=== PATIENT | female | born 1995 | race Caucasian/White ===

== ENCOUNTER 2022-06-13 08:31 | Inpatient (IN) ==
[2022-06-13] MEDS ORDERED: OXYTOCIN 30 UNITS/500 ML BAG IV PRN ×2 (10:29→21:56)
[2022-06-13] MEDS ORDERED: LACTATED RINGER'S 1,000 ML IV PRN (10:29)
[2022-06-13] MEDS ORDERED: LIDOCAINE 1% LOCAL 20 ML VIAL INFIL PRN (10:29)
--- NOTE | 2022-06-13 10:34 | History & Physical Report ---
Date of Service June 13, 2022 Assessment & Plan (1) Post-term , 40-42 weeks of gestation: Plan: Anticipate normal delivery History of Present Illness Chief Complaint: onset of labor Primary Care Provider: Celsa Brito MD 27 F P0000 at 41.5 weeks admitted in active labor. GBS is negative. Covid is negative. Allergies Allergy/AdvReac Type Severity Reaction Status Date / Time No Known Allergies Allergy Unverified 06/02/22 13:28 Home Medications Medication Instructions Recorded Confirmed Type ferrous sulfate 1 tab PO DAILY 06/02/22 06/13/22 History vits,calcium 91-iron 28 1 pkg PO 06/02/22 History mg-folic 975 mcg-dha 200 mg oral pack ( + DHA) Patient History Medical History Asthma Dysthymia Surgical History No history of previous surgery Family History Grandmother Heart disorder Breast cancer Dementia Mother Hypertension Father ADD (attention deficit disorder) Sister ADD (attention deficit disorder) Social History Smoking Status: Never smoker Second Hand Exposure: No; Hx Alcohol Use: No Hx Substance Use: No Preferred Language: Polish Communication Ability: Effective Communications Equipment Operator Required: No Beliefs That Will Affect Care: None marital status: Current Living Situation: Spouse Current Living Situation Comment: Lives at home with Feels Safe at Home: Yes Safety Concerns: Feels Safe At This Time Assistive Devices: Contacts and Glasses OB History [employer] History neg Review of Systems All systems reviewed & are unremarkable except as noted in HPI & below Physical Exam Constitutional: WD/WN, vitals as above Eyes: PERRL, conjunctivae normal, anicteric sclerae Respiratory: normal respiratory effort, lungs clear to auscultation Cardiovascular: RRR, no murmur, no edema Gastrointestinal (Abdomen): Inspection/Auscultation: abdomen normal to inspection Musculoskeletal: Extremities: extremities normal to inspection Skin: no rashes, warm and dry Neurologic: patellar DTR's 2+ bilat, sensation intact Psychiatric: A+Ox3, euthymic affect Genitourinary: no vaginal lesions, no adnexal mass OB Exam Abdomen: + fundal height and + vertex Manual OB Exam: + cervical dilation 8 cm and 9 cm, + cervical effacement 100% and + station 0 OB Exam Monitor Tracing: + external FHT monitor used, + external uterine monitor used, + category I and + normal FHT variability Results & Data ([facility]) Vital Signs (Past 12 Hours) Vital Signs Temp Pulse Resp BP 06/13/22 08:44 72 112/66 06/13/22 08:55 36.7 C 72 18 112/66 Laboratory Results 06/13/22 Unknown SARS-CoV-2, RNA, NAAT NEGATIVE Code Status & VTE Plan VTE Prophylaxis Plan VTE Prophylaxis will be ordered: No Monitoring External Monitor Cat 1
[2022-06-13 10:47] LABS: Hematocrit (blood only) 35.5 % (34.1-44.9); Hemoglobin 12.4 g/dl (12.0-16.0); Mean Corpuscular Hemoglobin 30.3 pg (25.0-34.0); Mean Corpuscular Hgb Conc 34.9 g/dL (32.0-36.0); Mean Corpuscular Volume 86.8 fL (80.0-100.0); Mean Platelet Volume 10.1 fL (9.4-12.3); Platelet Count 259 K/uL (130-400); RDW Coefficient of Variation 13.6 % (11.5-14.5); RDW Standard Deviation 43.1 fL (36.4-46.3); Red Blood Count 4.09 M/uL (3.93-5.22); White Blood Count 25.28 K/ul (4.8-10.8)
--- NOTE | 2022-06-13 13:46 | Labor Progress Brief Note ---
Date of Service June 13, 2022 Assessment & Plan Admission and Anticipated Discharge Date Admission Date: June 13, 2022 Physical Exam Genitourinary: Manual OB Exam: + cervical dilation 9 cm and 10 cm, + cervical effacement 100%, + station 0 and + amniotic fluid clear OB Exam Monitor Tracing: + external FHT monitor used, + category I and + normal FHT variability AROM with Amni-hook clear fluid Results & Data ([facility]) Vital Signs (Past 12 Hours) Vital Signs Temp Pulse Resp BP 06/13/22 13:27 06/13/22 13:27 36.3 C L 06/13/22 13:31 91 H 137/80 06/13/22 12:56 78 120/66 06/13/22 08:43 06/13/22 08:43 36.7 C 06/13/22 10:15 20 06/13/22 10:15 36.7 C 06/13/22 08:44 72 112/66 06/13/22 08:55 36.7 C 72 18 112/66
--- NOTE | 2022-06-13 16:56 | Labor Progress Brief Note ---
Date of Service June 13, 2022 Assessment & Plan Admission and Anticipated Discharge Date Admission Date: June 13, 2022 Physical Exam Genitourinary: Manual OB Exam: + cervical dilation 9 cm and 10 cm, + cervical effacement 100%, + station + 1 and + amniotic fluid clear OB Exam Monitor Tracing: + external FHT monitor used, + external uterine monitor used, + category I and + normal FHT variability Results & Data ([facility]) Vital Signs (Past 12 Hours) Vital Signs Temp Pulse Resp BP 06/13/22 15:30 36.7 C 79 18 118/62 06/13/22 14:22 18 06/13/22 14:22 36.4 C L 18 06/13/22 12:55 18 06/13/22 12:55 36.9 C 18 06/13/22 13:27 20 06/13/22 13:27 36.3 C L 20 06/13/22 13:31 91 H 137/80 06/13/22 12:56 78 120/66 06/13/22 08:43 20 06/13/22 08:43 36.7 C 20 06/13/22 10:15 20 06/13/22 10:15 36.7 C 20 06/13/22 08:44 72 112/66 06/13/22 08:55 36.7 C 72 18
[2022-06-13] MEDS ORDERED: DIPHTHERIA/TETANUS/PERTUSSIS 0.5 ML SYR/VIAL IM ONE (21:56)
[2022-06-13] MEDS ORDERED: OXYTOCIN 10 UNITS/ML 10ML VIAL IM ONE (21:56)
[2022-06-13] MEDS ORDERED: ACETAMINOPHEN 325 MG TAB PO PRN (21:56)
[2022-06-13] MEDS ORDERED: BENZOCAINE 20% AER SPR 82.5 GM CAN EXT PRN (21:56)
[2022-06-13] MEDS ORDERED: bisacodyL 10 MG SUPP PR PRN (21:56)
[2022-06-13] MEDS ORDERED: HYDROCORTISONE ACETATE 25 MG SUPP PR PRN (21:56)
--- NOTE | 2022-06-13 22:02 | Delivery Summary ---
Vaginal Delivery Summary Date of Service June 13, 2022 Vaginal Delivery Summary Delivery Note live female over intact perineum with Apgars 8/9 weight pending. Cord blood obtained followed by spontaneous delivery of intact placenta. Second degree tear repaired with 3/0 Vicryl suture and 1% Lidocaine local. EBL 300 ml. 10 Units of IM Pitocin given due to IV site blown. Final sponge, needle and instrument count are correct. Mom and baby stable.
[2022-06-14] MEDS: IBUPROFEN 600 MG TAB PO PRN ×3 (00:30→22:30)
[2022-06-14] MEDS ORDERED: LIDOCAINE 1% LOCAL 20 ML VIAL INJ ONE (01:13)
[2022-06-14] MEDS ORDERED: OXYTOCIN 10 UNITS/ML VIAL ONE (01:17)
[2022-06-14 07:11] LABS: Hematocrit (blood only) 26.2 % (34.1-44.9); Hemoglobin 9.2 g/dl (12.0-16.0); Mean Corpuscular Hemoglobin 30.6 pg (25.0-34.0); Mean Corpuscular Hgb Conc 35.1 g/dL (32.0-36.0); Mean Platelet Volume 10.2 fL (9.4-12.3); Platelet Count 230 K/uL (130-400); RDW Coefficient of Variation 13.4 % (11.5-14.5); RDW Standard Deviation 42.1 fL (36.4-46.3); Red Blood Count 3.01 M/uL (3.93-5.22); White Blood Count 36.06 K/ul (4.8-10.8)
[2022-06-14] MEDS ORDERED: FERROUS SULFATE 325 MG TAB PO SCH (08:00)
[2022-06-14] MEDS ORDERED: NON-FORMULARY MEDICATION (Ferrous Sulfate 1 TAB) PO SCH (09:00)
[2022-06-14] MEDS: PRENATAL VITAMIN 1 TAB PO SCH (09:46)
[2022-06-14] MEDS: DOCUSATE SODIUM 100 MG CAP PO SCH ×2 (09:46→20:25)
--- NOTE | 2022-06-14 09:46 | Obstetrical Progress Note ---
Date of Service June 14, 2022 Assessment & Plan Admission and Anticipated Discharge Date Admission Date: June 13, 2022 Subjective Patient is seen and examined. She feels well, no complaints. Ambulating without dizziness Voiding without difficulty Tolerating regular diet with out N&V Bleeding is minimal No fever/ chills/ CP/ SOB/ N&V/ Leg pain Breast feeding without problems Vital Signs Temp Pulse Pulse Resp BP BP Pulse Ox 06/14/22 04:20 36.6 C 97 H 16 105/70 98 06/14/22 01:20 37.1 C 114 H 18 115/73 98 06/14/22 00:30 18 06/13/22 23:15 18 06/13/22 22:45 18 06/13/22 22:30 20 06/13/22 22:15 20 06/13/22 22:00 20 06/14/22 00:52 112 H 117/70 06/14/22 00:36 100 H 119/64 06/14/22 00:30 114 H 99/55 L 06/14/22 00:24 113 H 99/56 L 06/14/22 00:19 98 H 110/65 06/14/22 00:14 115 H 105/61 06/14/22 00:09 104 H 106/59 L 06/14/22 00:06 116 H 99/58 L 06/13/22 23:47 62 113/51 L 06/13/22 23:31 122 H 110/63 06/13/22 23:17 130 H 118/64 06/13/22 23:01 118 H 118/63 06/13/22 22:47 134 H 117/63 06/13/22 22:31 113 H 116/62 06/13/22 22:17 101/61 06/13/22 22:01 141 H 106/57 L 06/13/22 21:46 130 H 122/53 L O2 Del Method 06/14/22 04:20 Room Air 06/14/22 01:20 Room Air 06/14/22 00:30 06/13/22 23:15 06/13/22 22:45 06/13/22 22:30 06/13/22 22:15 06/13/22 22:00 06/14/22 00:52 06/14/22 00:36 06/14/22 00:30 06/14/22 00:24 06/14/22 00:19 06/14/22 00:14 06/14/22 00:09 06/14/22 00:06 06/13/22 23:47 06/13/22 23:31 06/13/22 23:17 06/13/22 23:01 06/13/22 22:47 06/13/22 22:31 06/13/22 22:17 06/13/22 22:01 06/13/22 21:46 Lab Results 06/13/22 06/13/22 06/13/22 Range/Units 10:30 10:34 Unknown WBC 25.28 H (4.8-10.8) K/ul RBC 4.09 (3.93-5.22) M/uL Hgb 12.4 (12.0-16.0) g/dl Hct 35.5 (34.1-44.9) % MCV 86.8 (80.0-100.0) fL MCH 30.3 (25.0-34.0) pg MCHC 34.9 (32.0-36.0) g/dL RDW Std Deviation 43.1 (36.4-46.3) fL RDW Coeff of Beth 13.6 (11.5-14.5) % Plt Count 259 (130-400) K/uL MPV 10.1 (9.4-12.3) fL SARS-CoV-2, RNA, NAAT NEGATIVE (NEGATIVE) Blood Type A Positive Antibody Screen NEGATIVE 06/14/22 Range/Units 06:17 WBC 36.06 H* (4.8-10.8) K/ul RBC 3.01 L (3.93-5.22) M/uL Hgb 9.2 L D (12.0-16.0) g/dl Hct 26.2 L (34.1-44.9) % MCV 87.0 (80.0-100.0) fL MCH 30.6 (25.0-34.0) pg MCHC 35.1 (32.0-36.0) g/dL RDW Std Deviation 42.1 (36.4-46.3) fL RDW Coeff of Beth 13.4 (11.5-14.5) % Plt Count 230 (130-400) K/uL MPV 10.2 (9.4-12.3) fL SARS-CoV-2, RNA, NAAT (NEGATIVE) Blood Type Antibody Screen PE: General: Alert, orientedx3, NAD Abd: soft, NT, fundus firm, below Umbilicus Perineum intact, Lochia rubra minimal Ext; NT, no edema AP: 27 yo s/p , ppd# 1 VSS Afebrile doing well Elevated WBCC, asymptomatic, afebrile, plan to repeat temps and CBC with diff at noon Continue routine care All questions were answered Results & Data ([facility]) Vital Signs (Past 12 Hours) Vital Signs Temp Pulse Pulse Resp BP BP Pulse Ox 06/14/22 04:20 36.6 C 97 H 16 105/70 98 06/14/22 01:20 37.1 C 114 H 18 115/73 98 06/14/22 00:30 18 06/13/22 23:15 18 06/13/22 22:45 18 06/13/22 22:30 20 06/13/22 22:15 20 06/13/22 22:00 20 06/13/22 21:45 18 06/14/22 00:52 112 H 117/70 06/14/22 00:36 100 H 119/64 06/14/22 00:30 114 H 99/55 L 06/14/22 00:24 113 H 99/56 L 06/14/22 00:19 98 H 110/65 06/14/22 00:14 115 H 105/61 06/14/22 00:09 104 H 106/59 L 06/14/22 00:06 116 H 99/58 L 06/13/22 23:47 62 113/51 L 06/13/22 23:31 122 H 110/63 06/13/22 23:17 130 H 118/64 06/13/22 23:01 118 H 118/63 06/13/22 22:47 134 H 117/63 06/13/22 22:31 113 H 116/62 06/13/22 22:17 101/61 06/13/22 22:01 141 H 106/57 L 06/13/22 21:46 130 H 122/53 L O2 Del Method 06/14/22 04:20 Room Air 06/14/22 01:20 Room Air 06/14/22 00:30 06/13/22 23:15 06/13/22 22:45 06/13/22 22:30 06/13/22 22:15 06/13/22 22:00 06/13/22 21:45 06/14/22 00:52 06/14/22 00:36 06/14/22 00:30 06/14/22 00:24 06/14/22 00:19 06/14/22 00:14 06/14/22 00:09 06/14/22 00:06 06/13/22 23:47 06/13/22 23:31 06/13/22 23:17 06/13/22 23:01 06/13/22 22:47 06/13/22 22:31 06/13/22 22:17 06/13/22 22:01 06/13/22 21:46
[2022-06-14 12:04] LABS: Hematocrit (blood only) 23.1 % (34.1-44.9); Hemoglobin 8.1 g/dl (12.0-16.0); Mean Corpuscular Hemoglobin 30.7 pg (25.0-34.0); Mean Corpuscular Hgb Conc 35.1 g/dL (32.0-36.0); Mean Corpuscular Volume 87.5 fL (80.0-100.0); Mean Platelet Volume 10.5 fL (9.4-12.3); Platelet Count 198 K/uL (130-400); RDW Coefficient of Variation 13.5 % (11.5-14.5); RDW Standard Deviation 42.5 fL (36.4-46.3); Red Blood Count 2.64 M/uL (3.93-5.22); White Blood Count 30.58 K/ul (4.8-10.8)
[2022-06-14 12:38] LABS: Basophils # (auto) 0.05 K/uL (0-0.2); Basophils % (auto) 0.2 %; Eosinophils # (auto) 0.02 K/uL (0-0.50); Eosinophils % (auto) 0.1 %; Immature Granulocytes # (auto) 1.15 K/uL (0.00-0.02); Immature Granulocytes % (auto) 3.8 %; Lymphocytes # (auto) 2.86 K/uL (1.2-3.4); Lymphocytes % (auto) 9.4 %; Monocytes # (auto) 2.67 K/uL (0.24-0.82); Monocytes % (auto) 8.7 %; Neutrophils # (auto) 23.83 K/uL (1.4-6.5); Neutrophils % (auto) 77.8 %
[2022-06-14] MEDS: FERROUS SULFATE 325 MG TAB PO SCH ×3 (18:12→20:27)
[2022-06-14] MEDS ORDERED: bisacodyL 5 MG TABEC PO SCH (20:00)
[2022-06-15] MEDS: DOCUSATE SODIUM 100 MG CAP PO SCH (08:19)
[2022-06-15] MEDS: PRENATAL VITAMIN 1 TAB PO SCH (08:19)
[2022-06-15] MEDS: IBUPROFEN 600 MG TAB PO PRN (08:19)
[2022-06-15] MEDS: FERROUS SULFATE 325 MG TAB PO SCH (08:19)
[2022-06-15 08:25] LABS: Hematocrit (blood only) 20.9 % (34.1-44.9); Hemoglobin 7.1 g/dl (12.0-16.0); Mean Corpuscular Hemoglobin 30.6 pg (25.0-34.0); Mean Corpuscular Volume 90.1 fL (80.0-100.0); Mean Platelet Volume 9.8 fL (9.4-12.3); Platelet Count 190 K/uL (130-400); RDW Coefficient of Variation 13.9 % (11.5-14.5); RDW Standard Deviation 45.1 fL (36.4-46.3); Red Blood Count 2.32 M/uL (3.93-5.22); White Blood Count 25.41 K/ul (4.8-10.8)
[2022-06-15 08:53] LABS: Basophils # (auto) 0.07 K/uL (0-0.2); Basophils % (auto) 0.3 %; Eosinophils % (auto) 0.4 %; Immature Granulocytes # (auto) 0.78 K/uL (0.00-0.02); Immature Granulocytes % (auto) 3.1 %; Lymphocytes # (auto) 4.07 K/uL (1.2-3.4); Monocytes # (auto) 2.19 K/uL (0.24-0.82); Monocytes % (auto) 8.6 %; Neutrophils % (auto) 71.6 %
[2022-06-15] MEDS ORDERED: IRON SUCROSE 200 MG in 0.9 % SODIUM CHLORIDE 100 ML IV ONE (10:00)
--- NOTE | 2022-06-15 10:00 | Obstetrical Progress Note ---
Date of Service June 15, 2022 Assessment & Plan (1) Anemia affecting in third trimester: IV Venofer Subjective Ambulation: ambulating normally Voiding: no voiding problems Passing Gas:: Yes Diet Tolerance:: regular diet Lochia:: Small Feeding Type:: breast feeding Current Pain Level(1-10): 0 doing well. no dizziness or any SOB. feels fine. Physical Exam Constitutional WD/WN, vitals as above Musculoskeletal Extremities: extremities normal to inspection Skin no rashes, warm and dry Neurologic patellar DTR's 2+ bilat, sensation intact Psychiatric A+Ox3, euthymic affect Results & Data ([facility]) Vital Signs (Past 12 Hours) Vital Signs Temp Pulse Resp BP Pulse Ox O2 Del Method 06/15/22 08:05 37.1 C 88 18 101/68 98 Room Air 06/15/22 00:26 36.5 C 96 H 18 119/74 97 Room Air Laboratory Results 06/13/22 06/13/22 06/13/22 10:30 10:34 Unknown WBC 25.28 H RBC 4.09 Hgb 12.4 Hct 35.5 MCV 86.8 MCH 30.3 MCHC 34.9 RDW Std Deviation 43.1 RDW Coeff of Beth 13.6 Plt Count 259 MPV 10.1 Immature Gran % (Auto) Neut % (Auto) Lymph % (Auto) [place] % (Auto) Eos % (Auto) Baso % (Auto) Neut # (Auto) Lymph # (Auto) [place] # (Auto) Eos # (Auto) Baso # (Auto) Immature Gran # (Auto) SARS-CoV-2, RNA, NAAT NEGATIVE Blood Type A Positive Antibody Screen NEGATIVE 06/14/22 06/14/22 06/15/22 06:17 11:37 08:11 WBC 36.06 H* 30.58 H* 25.41 H RBC 3.01 L 2.64 L 2.32 L Hgb 9.2 L D 8.1 L 7.1 L Hct 26.2 L 23.1 L 20.9 L* MCV 87.0 87.5 90.1 MCH 30.6 30.7 30.6 MCHC 35.1 35.1 34.0 RDW Std Deviation 42.1 42.5 45.1 RDW Coeff of Beth 13.4 13.5 13.9 Plt Count 230 198 190 MPV 10.2 10.5 9.8 Immature Gran % (Auto) 3.8 3.1 Neut % (Auto) 77.8 71.6 Lymph % (Auto) 9.4 16.0 [place] % (Auto) 8.7 8.6 Eos % (Auto) 0.1 0.4 Baso % (Auto) 0.2 0.3 Neut # (Auto) 23.83 H 18.20 H Lymph # (Auto) 2.86 4.07 H [place] # (Auto) 2.67 H 2.19 H Eos # (Auto) 0.02 0.10 Baso # (Auto) 0.05 0.07 Immature Gran # (Auto) 1.15 H 0.78 H SARS-CoV-2, RNA, NAAT Blood Type Antibody Screen
== END 2022-06-15 14:37 | disposition home or self-care (01) | DRG 807 ==
LOC: OPB 08:31 → 4S1 08:32 → 4E2 06-14 01:05